=== PATIENT | female | born 1980 | race Caucasian/White ===

== ENCOUNTER → 2018-11-14 | Outpatient (CLI) | payer OTHER ==
[~2018-11-14] MED LIST: NAPROXEN SODIU550 MG PO; TYLENOL W-CODEI1 TAB PO
== END | disposition home or self-care (01) ==
LOC: PRENATAL 11:00
DX: O99.89 Other specified diseases and conditions complicating pregnancy, childbirth and the puerperium (principal); O99.213 Obesity complicating pregnancy, third trimester; O09.523 Supervision of elderly multigravida, third trimester

== ENCOUNTER 2018-12-08 09:45 | Inpatient (IN) | payer OTHER ==
[~2018-12-08] VITALS: Ht 162.6 cm; Wt 2.7 kg
[2018-12-08] MEDS ORDERED: SYNTHROID88 MCG (12:04)
[2018-12-08] MEDS ORDERED: ASPIR 8181 MG (12:06)
[2018-12-08] MEDS ORDERED: PRENATAL 19 TA1 EACH PO (12:20)
[2018-12-21] MEDS ORDERED: PRENATAL TABLE1 EACH PO (08:59)
[2018-12-24] MEDS ORDERED: Tylenol #3 PO (11:22)
== END 2018-12-24 11:51 | disposition home or self-care (01) | DRG 785 ==
LOC: O/R 09:45 → OB/GYN 12-21 08:20 → SURH 12-21 09:45 → OB/GYN 12-21 14:42 → SURH 12-21 15:15 → OB/GYN 12-24 11:51
PROVIDERS: ADMIT Obstetrics & Gynecology
PROC: 0UL70ZZ Occlusion of Bilateral Fallopian Tubes, Open Approach (ICD-10-PCS; 2018-12-21)
PROC: 4A1HXCZ Monitoring of Products of Conception, Cardiac Rate, External Approach (ICD-10-PCS; 2018-12-21)
PROC: 10D00Z1 Extraction of Products of Conception, Low, Open Approach (ICD-10-PCS; principal; 2018-12-21 15:15)
DX: O82 Encounter for cesarean delivery without indication (principal); Z3A.38 38 weeks gestation of pregnancy; Z37.0 Single live birth; Z30.2 Encounter for sterilization; Z22.330 Carrier of Group B streptococcus